=== PATIENT | female | born 1965 | race Caucasian/White ===

== ENCOUNTER 2020-12-30 09:46 | Emergency (ER) | payer MEDICAID ==
[~2020-12-30] VITALS: Ht 167.6 cm; Wt 92.5 kg
--- NOTE | 2020-12-30 09:55 | NUR ---
at bedside for assesment, patient complaints of a right sided groin rash for 2 days
--- NOTE | 2020-12-30 10:07 | NUR ---
Groin rash with 9/10 pain and itching x 2 days. Pt denies CP, SOB, dizziness, n/v, no other complaints, no distress noted.
[2020-12-30] MEDS ORDERED: SULF1TAB48 PO (10:08)
--- NOTE | 2020-12-30 10:12 | NUR ---
Patient discharged to home in stable condition. patient instucted to only fill the oral antibiotic if her groin rash doesnt go away after two days of treatment with OTC ointment, patient states she understands. Written and verbal after care instructions given. Patient verbalizes understanding of instructions. Stressed follow up or return to ER for worsening s/s.
[2020-12-30 10:15] VITALS: BP 156/96
== END 2020-12-30 10:16 | disposition home or self-care (01) ==
LOC: ER 09:46
DX: L73.9 Follicular disorder, unspecified (principal); I10 Essential (primary) hypertension
CPT/HCPCS: A4663